=== PATIENT | male | born 1995 | race Caucasian/White ===

== ENCOUNTER 2016-09-26 10:39 | Emergency (ER) | payer BC, OTHER ==
[~2016-09-26] VITALS: Ht 175.3 cm; Wt 115.0 kg
[~2016-09-26 10:39] MED LIST: NO ROUTINE MEDS
[2016-09-26 10:40] VITALS: Ht 175.3 cm; Wt 115.0 kg
--- OUTSIDE RECORDS SUMMARY | 2016-09-26 10:43 | XMS REPORT ---
Author Author Litzy Allen Organization [employer] Address Unknown Phone Unavailable Care Team Providers Care Agricultural Technical Officer Name Role Phone Litzy Allen CP Unavailable Allergies, Adverse Reactions, Alerts Substance Reaction Event Type N.K.D.A. Info Not Available Non Drug Allergy Problems Problem Type Condition ICD-9 Code Onset Dates Condition Status Assessment Cough 786.2 Active Medications No Known Medications Procedures Procedure Coding System Code Date OFFICE VISIT, EST-LOW COMPLEXITY (15 MIN.) CPT-4 68537 September 23, 2014 INHALATION TREATMENT. CPT-4 65598 September 23, 2014 Vital Signs Date/Time: September 23, 2014 Height 69.5 in BMIPercentile 94.77 % Weight 200.8 lbs Temperature 98.6 F Blood Pressure Diastolic 78 mm Hg Blood Pressure Systolic 112 mm Hg Cardiac Monitoring Heart Rate 80 /min BMI 29.22 Index Wt Percentile 93.79 % Respiratory Rate 20 /min Results No Known Results Summary Purpose [employer] Submission
--- OUTSIDE RECORDS SUMMARY | 2016-09-26 10:43 | XMS REPORT ---
Author Author Litzy Allen Organization [employer] Address Unknown Phone Unavailable Care Team Providers Care Chemical Operations Specialist Name Role Phone Litzy Allen CP Unavailable Allergies No Known Allergies Problems Problem Type Condition ICD-9 Code Onset Dates Condition Status Assessment Dysuria 788.1 Active Medications No Known Medications Procedures Procedure Coding System Code Date OFFICE VISIT, EST-LOW COMPLEXITY (15 MIN.) CPT-4 72887 Apr 13, 2014 Vital Signs Date/Time: Apr 13, 2014 Ht Percentile 51.79 % Height 69.5 inches BMIPercentile 95.35 % Weight 200.8 lbs Temperature 98.4 F Blood Pressure Diastolic 80 mm Hg Blood Pressure Systolic 120 mm Hg Cardiac Monitoring Heart Rate 88 Beats per Minute BMI 29.22 Index Wt Percentile 94.44 % Respiratory Rate 16 per Minute Results Name Result Date Reference Range Unit KDHE Urine Chlamydia Trachomatis and Gonorrhoea Summary Purpose [employer] Submission
--- OUTSIDE RECORDS SUMMARY | 2016-09-26 10:43 | XMS REPORT ---
Author Author Litzy Allen Organization [employer] Address Unknown Phone Unavailable Care Team Providers Care Bull Chain Operator Name Role Phone Litzy Allen CP Unavailable Allergies, Adverse Reactions, Alerts Substance Reaction Event Type N.K.D.A. Info Not Available Non Drug Allergy Problems Problem Type Condition ICD-9 Code Onset Dates Condition Status Assessment URI 460 Active Medications Medication Code System Code Instructions Start Date End Date Status Dosage Amoxicillin [facility] [address]-49 500 MG Orally every 12 hrs October 01, 2014 October 08, 2014 1 tablet Loratadine [facility] [address]-26 10 MG Orally Once a day October 01, 2014 January 29, 2015 1 tablet Albuterol Sulfate HFA [facility] [address]-48 108 (90 Base) MCG/ACT Inhalation every 4-6 hrs October 01, 2014 1-2 puffs as needed Robitussin Cold Cough+ Chest [facility] [address]-45 10-100 MG/5ML Orally every 4 hrs 10 ml as needed Procedures Procedure Coding System Code Date OFFICE VISIT, EST-LOW COMPLEXITY (15 MIN.) CPT-4 72722 October 01, 2014 INHALATION TREATMENT. CPT-4 47376 October 01, 2014 Vital Signs Date/Time: October 01, 2014 Height 69.5 in BMIPercentile 94.26 % Weight 198.8 lbs Temperature 98.0 F Blood Pressure Diastolic 72 mm Hg Blood Pressure Systolic 120 mm Hg Cardiac Monitoring Heart Rate 102 /min BMI 28.93 Index Wt Percentile 93.21 % Oximetry 98 % Results No Known Results Summary Purpose [employer] Submission
--- OUTSIDE RECORDS SUMMARY | 2016-09-26 10:44 | XMS REPORT ---
Author Author Maria Garcia Organization [employer] Address Unknown Phone Unavailable Care Team Providers Care Batch Unit Treater Name Role Phone Maria Garcia CP Unavailable Allergies, Adverse Reactions, Alerts Substance Reaction Event Type N.K.D.A. Info Not Available Non Drug Allergy Problems Problem Type Condition Code Onset Dates Condition Status Assessment Acute upper respiratory infection, unspecified J06.9 Active Assessment Nausea with vomiting, unspecified R11.2 Active Medications Medication Code System Code Instructions Start Date End Date Status Dosage Robitussin Cold Cough+ Chest [facility] [address]-92 10-100 MG/5ML Orally every 4 hrs 10 ml as needed Albuterol Sulfate HFA [facility] [address]-73 108 (90 Base) MCG/ACT Inhalation every 4-6 hrs October 01, 2014 1-2 puffs as needed Procedures Procedure Coding System Code Date OFFICE VISIT, EST-LOW COMPLEXITY (15 MIN.) CPT-4 54377 May 04, 2015 Vital Signs Date/Time: May 04, 2015 Height 69.5 in BMIPercentile 96.34 % Weight 212.0 lbs Temperature 101.4 F Blood Pressure Diastolic 60 mm Hg Blood Pressure Systolic 80 mm Hg Cardiac Monitoring Heart Rate 74 /min BMI 30.85 Index Wt Percentile 95.87 % Respiratory Rate 16 /min Results No Known Results Summary Purpose [employer] Submission
--- OUTSIDE RECORDS SUMMARY | 2016-09-26 10:44 | XMS REPORT | Continuity of Care Document ---
Author Author [facility] Organization [facility] Address Unknown Phone Unavailable Support Name Relationship Address Phone CLIENT, BILLING Caregiver Unknown Unavailable MARIA DEL ROSARIO KELSEY Next Of Kin [address] [place] [address] [place] [address] Insurance Providers Payer Name Policy Number Subscriber Name Relationship Workers Compensation Ruben Kelsey I 18 Low Problems Medical Problems Problem Onset Date Status Finger contusion Unknown Active Medications Medication Dose Route Sig Days/Qty Instructions Order Date Discontinued Date Status [No Routine Meds] 10/10/14 Active Tramadol HCl 50 Mg PO EVERY 4-6 HOURS PRN PAIN 20 Qty As needed for pain not controlled with Ibuprofen 10/10/14 Active Cephalexin 500 Mg PO THREE TIMES A DAY 30 Qty 10/10/14 Active Social History No social history. Hospital Discharge Instructions No hospital discharge instructions. Plan of Care No plan of care. Functional Status Query Response Date Recorded Physical Hygiene Self October 10, 2014 1:40pm Physical Hygiene Self October 10, 2014 1:40pm Allergies, Adverse Reactions, Alerts Allergen Type Severity Reaction Status Last Updated No Known Allergies Active 10/10/14 Immunizations Name Given Type Hx Influenza Vaccination No Historical Hx Pneumococcal Vaccination No Historical Hx Tetanus, Diptheria, Pertussis No Historical Hx Influenza Vaccination No Historical Hx Tetanus Diptheria Y 2012 Historical Hx Tetanus, Diptheria, Pertussis No Historical Hx Tetanus Toxoid Vaccination No Historical Vital Signs Acute Vital Signs Vital Response Date/Time Temperature (Fahrenheit) 98.0 deg F (96.8 - 99.1) Temperature (Calculated Celsius) 36.61772 degrees C (36.0 - 37.3) Pulse Rate (adult) 69 bpm (60 - 100) Respiratory Rate 12 breaths/min (10 - 20) O2 Sat by Pulse Oximetry 99 % (90 - 100) Blood Pressure 122/77 mm Hg Results No known relevant diagnostic tests, laboratory data and/or discharge summary. Procedures No known history of procedures. Encounters Encounter Location Date/Time Departed Emergency Room [facility] 10/10/14 12:40pm
--- OUTSIDE RECORDS SUMMARY | 2016-09-26 10:44 | XMS REPORT ---
Author Author Litzy Allen [facility] [employer] Address Unknown Phone Unavailable Care Team Providers Care Shirring Tender Name Role Phone Litzy Allen CP Unavailable Allergies No Known Allergies Problems No Known Problems Medications No Known Medications Vital Signs Date/Time: Apr 13, 2014 Ht Percentile 51.79 % Height 69.5 inches BMIPercentile 95.35 % Weight 200.8 lbs Temperature 98.4 F Blood Pressure Diastolic 80 mm Hg Blood Pressure Systolic 120 mm Hg Cardiac Monitoring Heart Rate 88 Beats per Minute BMI 29.22 Index Wt Percentile 94.44 % Respiratory Rate 16 per Minute Results No Known Results Summary Purpose [employer]Works Submission
[2016-09-26] MEDS ORDERED: IBUP-1724 PO (11:01)
--- NOTE | 2016-09-26 11:34 | NUR ---
PT STATEMENT WITH PT REASSESSMENT PT NOW ASKS "WHAT COLOR WOULD BLOOD FROM THE STOMACHE BE"? PT IS ASKED WHY HE WOULD ASK THIS AND HE STATES "WELL I JUST REMEMBERED THAT WHEN I GOT HOME I DID THROW UP ONE MORE TIME AND IT LOOKED LIKE IT HAD DARK CHEWING TOBACCO IN IT", PT GOES ON TO SAY "WHEN YOU ASKED ABOUT THE LAST TIME I THREW UP AND I HAD SAID 3 HOURS AGO, I HAD FORGOTTEN THIS OTHER EPISODE". PT 'S V/S RETAKEN AND REDIRRECTED TO THE CALL LIGHT AND PT IS ASKED IF HE'D LIKE TO WATCH TELEVISION AND PT NOW SAYS "I CAN'T, I AM REALLY STARTING TO FEEL BAD NOW". WHEN ASKED WHERE HE FEELS BAD PT STATES "I AM REALLY GETTING AND HEADACHE AND I AM FEELING WEAK ALL OVER". PT DOES NOT APPEAR TO BE IN ANY DISTRESS, V/S REMAIN STABLE.
[2016-09-26] MEDS ORDERED: NORMAL SALINE 1,000 ML IV ONE (11:44)
[2016-09-26] MEDS ORDERED: ONDANSETRON 4mg/2ml INJECTION IV ONE (11:45)
[2016-09-26 12:04] LABS: BASOPHILS % (AUTO) 0.2 % (0-2); EOSINOPHILS % (AUTO) 0.5 % (0-4); HCT - HEMATOCRIT 45.7 % (41-53); IMMATURE GRANULOCYTE # (AUTO) 0.02 T/MM3 (0.00-0.03); IMMATURE GRANULOCYTE % (AUTO) 0.3 % (0.0-0.5); LYMPHOCYTES # (AUTO) 1.2 T/MM3 (1-4.8); LYMPHOCYTES % (AUTO) 20.1 % (23-45); MEAN CORPUSCULAR HGB 29.5 UUG (26-34); MEAN CORPUSCULAR HGB CONC(MCHC 32.8 GM/DL (31-37); MEAN CORPUSCULAR VOLUME 89.8 UM3 (80-100); MEAN PLATELET VOLUME 11.3 UM3 (9.4-12.4); MONOCYTES # (AUTO) 0.6 T/MM3 (0-0.8); MONOCYTES % (AUTO) 9.3 % (0-9.0); NEUTROPHILS #(AUTO)-ABSOLUTE 4.2 T/MM3 (1.8-7.7); NEUTROPHILS % (AUTO) 69.6 % (33-66); RED BLOOD COUNT 5.09 M/MM3 (4.50-5.90)
--- OUTSIDE RECORDS SUMMARY | 2016-09-26 12:07 | XMS REPORT | Continuity of Care Document ---
Author Author [facility] Organization [facility] Address Unknown Phone Unavailable Support Name Relationship Address Phone CLIENT, BILLING Caregiver Unknown Unavailable MARIA DEL ROSARIO KELSEY Next Of Kin [address] [place] [address] [place] [address] Insurance Providers Payer Name Policy Number Subscriber [...] F (96.8 - 99.1) Temperature (Calculated Celsius) [phone] degrees C (36.0 - 37.3) Pulse Rate (adult) 69 bpm (60 - 100) Respiratory Rate 12 breaths/min (10 - 20) O2 Sat by Pulse Oximetry 99 % (90 - 100) Blood Pressure 122/77 mm Hg Results No known relevant diagnostic tests, laboratory data and/or discharge summary. Procedures No known history of procedures. Encounters Encounter Location Date/Time Departed Emergency Room [facility] 10/10/14 12:40pm
[2016-09-26 12:12] LABS: ANION GAP 9 MEQ/L (5-15); BUN/CREATININE RATIO 16 RATIO (6-26); CALCIUM 9.2 MG/DL (8.4-10.2); CHLORIDE 109 MEQ/L (98-107); CO2 - CARBON DIOXIDE 25 MEQ/L (22-30); CREATININE 0.8 MG/DL (0.8-1.5); GLOMERULAR FILTRATION RATE 123; GLUCOSE 99 MG/DL (75-110); POTASSIUM 4.4 MEQ/L (3.6-5); SODIUM 143 MEQ/L (134-144)
[2016-09-26 12:17] LABS: BLOOD, URINE NEGATIVE (NEGATIVE); COLOR,URINE YELLOW (YELLOW); LEUKOCYTE ESTERASE ,URINE NEGATIVE (NEGATIVE); NITRITE,URINE NEGATIVE (NEGATIVE)
--- NOTE | 2016-09-26 12:38 | ERPDOC ---
Departure Disposition Decision Date: Sep 26, 2016 Disposition Decision Time: 13:10 Disposition: 01 DISCHARGED HOME, SELF-CARE Impression Impression Impression: Primary Impression: Gastroenteritis Severity: Moderate Condition: Stable Seen By: Physician only Patient Instructions: Gastroenteritis (ED) Problems/Meds/Labs Reviewed?: Yes Medications reviewed and manag: Yes Additional Instructions: Home to rest today. Take ondansetron as needed for nausea. Try to take frequent small sips of clear liquids. Return to normal diet as you feel better. Take Imodium if you develop diarrhea. Take Pepcid (famotidine) or Zantac (ranitidine) twice daily to decrease the acid in your stomach as needed. See work note. Follow up with your doctor if not improving Departure Forms: Return to Work/School Permit Return to Work/School Date: Sep 28, 2016 Follow up care ordered?: Yes Mental Status: Alert, Oriented Scripts Ondansetron (Ondansetron Odt) 4 Mg Tab.rapdis 1 TAB PO Q6-8HPRN, #16 TAB 0 Refills Prov: JOSETTE GAUTAM MD 09/26/16 HPI - Abdominal Pain General Chief Complaint: Nausea,Vomiting,Diarrhea Stated Complaint: VOMITING BLOOD Time Seen by Provider: 11:32 Source: patient, RN notes reviewed, old records History/Exam Limitations: no limitations HPI - Abdominal Pain Initial Comments This patient comes in complaining of several episodes of vomiting. He was on his way to work this morning when he became suddenly nauseated and vomited three times on the side of the road. It was still dark, but he used the light on his phone to look at it and thinks there was some dark blood in the emesis. He then went home and had another emesis and says that there was some dark stuff in it that looked like tobacco, but he hadn't ingested anything like that. He also says that he has had other episodes of emesis randomly and that he thinks maybe he has an ulcer because of this. He has taken Prilosec sporadically because of these symptoms. Occurred At: other (roadside) Onset: Rapid Duration: 1-3 hrs Pain Scale: Now: 1/10 Quality: cramping Location: generalized abdomen Radiation: no radiation Activities at Onset: none Associated Symptoms: nausea/vomiting Hx of Similar Symptoms: Yes Allergies: Coded Allergies: No Known Allergies (Unverified , 09/26/16) Past History Past Medical History Pt denies signifigant PMH Cardiac: other (mumur as a child) Surgical History Denies Surgeries Vaccines Hx Influenza Vaccination: No Hx Pneumococcal Vaccination: No Hx Tetanus Diptheria: Yes (2012) Hx Tetanus, Diptheria, Pertuss: No Social History Smoking Status: Current every day smoker Alcohol Intake: occasionally Record Review Pertinent history updated: Yes Review of Systems Constitutional Constitutional: appetite decrease, DENIES: chills, dizziness, fever, weakness Eyes General: DENIES: pain Lids/Accessories: DENIES: erythema Vision: DENIES: blurring ENMT Ears: DENIES: pain Hearing: DENIES: hearing loss Balance: DENIES: vertigo Sinuses: DENIES: congestion, rhinorrhea Mouth/Throat: DENIES: sore throat Teeth: DENIES: pain Cardiovascular Cardiac: DENIES: chest pain Rhythm/Rate: DENIES: palpitations Vascular: DENIES: pedal edema, unilateral swelling Pulmonary Respiratory: DENIES: cough, dyspnea, sputum GI Upper Abdomen: nausea, see HPI, vomiting Lower Abdomen: DENIES: diarrhea General: DENIES: dysuria, hematuria Male: DENIES: hesitancy Musculoskeletal General: DENIES: joint pain, pain Integumentary Skin: DENIES: itching, rash Neurological General: DENIES: headache, memory disturbances, seizures, syncope Psychiatric Psychiatric: DENIES: anxiety, depression Endocrine Endocrine: DENIES: heat/cold intolerance Hematologic/Lymphatic Hematologic/Lymphatic: DENIES: anemia, easy bruising Allergic/Immunological Allergic/Immunoligical: DENIES: hives All other Systems All Other Systems: Reviewed and Negative Physical Exam General General Nourishment: well nourished, well developed, appears stated age, no acute distress, adult General Body Habitus: well groomed Vitals and Pain Weight: Kilograms: 115.000 Height (feet): 5 Height (inches): 9.00 Triage Pain Scale: RN VS reviewed by Provider: Yes Normal Exams: Head: Normocephalic w/o trauma Eyes: Pupils are PERRLA w/ EOMI, No scleral icterus, irritation, or foreign bodies noted ENMT: No facial trauma, nasal exudates, pharyngeal erythema, or exudates are noted Dental: No fractured, loose, or missing teeth noted Neck: Full range of motion, without adenopathy, JVD, bruits or thyromegaly Chest/Resp: Clear all aguila, with good airflow, and symmetry bilaterally CV: Regular rate and rhythm, without murmur or gallop, Pulses 2+ all extremities, capillary refill, <2 seconds all ext., no pedal edema noted Abdomen: Bowel sounds positive, soft, non-tender, non-distended, no hepatosplenomegaly, masses or bruits noted Lymphatic: No lymphadenopathy, or lymphedema noted Musculoskeletal: No tenderness, or deformity noted, good range of motion, all extremities Integumentary: No rashes, hives, or bruising noted, hair and nails, without abnormality Neurologic: Patient is alert, and oriented, cranial nerves, motor/sensory/ cerebellar, exams w/o gross deficits, to observation Psychiatric: Patient exhibits, appropriate attention, emotion and affect Differential Diagnoses Considering: Cholecystitis, Food Poisoning, Gastroenteritis, Hypokalemia, Pancreatitis, UTI, Viral Syndrome Progress Results/Orders Orders Procedure Category Date Status Time Iv Lock (Ed Only) EDM 09/26/16 Transmitted 11:44 Nothing By Mouth (Ed EDM 09/26/16 Transmitted Only) 11:44 Cbc W/Auto LAB 09/26/16 Complete Diff-Reflex Manual 11:44 Bmp - Basic Metabolic LAB 09/26/16 Complete Panel 11:44 Ua, Dip Wreflex LAB 09/26/16 Complete Microsc & Educational Specialist 11:44 Normal Saline (Normal PHA 09/26/16 Complete Saline Iv) 11:44 Ondansetron Inj PHA 09/26/16 Complete (Zofran) 11:45 Lab Results Laboratory Tests Test 09/26/16 11:58 09/26/16 12:07 White Blood Count 6.0T/MM3 Red Blood Count 5.09M/MM3 Hemoglobin 15.0GM/DL Hematocrit 45.7% Mean Corpuscular Volume 89.8UM3 Mean Corpuscular Hemoglobin 29.5UUG Mean Corpuscular Hemoglobin Concent 32.8GM/DL RDW Standard Deviation 45.3FL Platelet Count 181T/MM3 Mean Platelet Volume 11.3UM3 Immature Granulocyte % (Auto) 0.3% Neutrophils (%) (Auto) 69.6% Lymphocytes (%) (Auto) 20.1% Monocytes (%) (Auto) 9.3% Eosinophils (%) (Auto) 0.5% Basophils (%) (Auto) 0.2% Absolute Immature Granulocyte (auto 0.02T/MM3 Absolute Neutrophils (auto) 4.2T/MM3 Absolute Lymphocytes (auto) 1.2T/MM3 Absolute Monocytes (auto) 0.6T/MM3 Absolute Eosinophils (auto) 0.0T/MM3 Absolute Basophils (auto) 0.0T/MM3 Turbidity < 20 Sodium Level 143MEQ/L Potassium Level 4.4MEQ/L Chloride Level 109MEQ/L Carbon Dioxide Level 25MEQ/L Anion Gap 9MEQ/L Blood Urea Nitrogen 13.0MG/DL Creatinine 0.8MG/DL Glomerular Filtration Rate Calc 123 BUN/Creatinine Ratio 16RATIO Glucose Level 99MG/DL Calculated Osmolality 275MOSM/KG Calcium Level 9.2MG/DL Icterus Index < 2 Chemistry Specimen Hemolysis < 15 Urine Collection Type Cleancatch-midstream Urine Color Yellow Urine Turbidity Clear Urine pH 8.0 Urine Specific [place] 1.020 Urine Protein Negative Urine Glucose (UA) Negative Urine Ketones Negative Urine Blood Negative Urine Nitrite Negative Urine Bilirubin Negative Urine Urobilinogen 1.0EU/DL Urine Leukocyte Esterase Negative Urinalysis Comment Microscopic not ind. Medications Current ED Medications Sodium Chloride (Normal Saline IV) 1,000 ml @ 0 mls/hr Q0M ONCE IV Last administered on 09/26/16 12:05; Start 09/26/16 at 11:44; Stop 09/26/16 at 11:46 ; Status DC Ondansetron HCl (Zofran) 4 mg O ONCE IV Last administered on 09/26/16 12:05; Start 09/26/16 at 11:45; Stop 09/26/16 at 11:46; Status DC Progress Progress Of note is that patient changed his history as time went on in the ER and tried fishing for what emesis was supposed to look like if it had blood in it. Labs normal. Gave patient antiemetics and IV fluids and he was able t o take oral liquids and retain prior to discharge. Suspect viral etiology. Work note written. JOSETTE GAUTAM MD Sep 26, 2016 12:38
--- NOTE | 2016-09-26 12:51 | NUR ---
FLUIDS PATIENT GIVEN LEMON SNOQUALMIE SODA.
[2016-09-26] MEDS ORDERED: ONDA4TAB10 PO (13:18)
[2016-09-26 13:32] VITALS: BP 114/68; PULSE 78; RESP 14; TEMP 98.7; O2SAT 100
--- NOTE | 2016-09-26 13:32 | NUR ---
DEPART VERBAL AND WRITTEN DISCHARGE INSTRUCTIONS GIVEN AND UNDERSTOOD. CONDITION STABLE. RELEASED AMBULATORY FORM ED WITH FAMILY
== END 2016-09-26 13:32 | disposition home or self-care (01) ==
LOC: ED 10:39
DX: K52.9 Noninfective gastroenteritis and colitis, unspecified (principal)
CPT/HCPCS: 80048; 81003; 85025; 96361; 96374; 99284; J2405; J7030